=== PATIENT | female | born 1945 | race Caucasian/White ===

== ENCOUNTER 2021-12-27 17:45 | Emergency (ER) | payer OTHER, MEDICAID, SELFPAY ==
[2021-12-27 17:53] VITALS: BP 136/68; PULSE 74; RESP 16; TEMP 36.8; O2SAT 98
--- NOTE | 2021-12-27 18:30 | DI.RAD_ITS ---
Exam(s) XR WRIST LT COMPLETE EXAM: XR WRIST LT COMPLETE CLINICAL HISTORY: fall injury TECHNIQUE: COMPARISON: No exams were available for comparison FINDINGS: Three views were obtained. There are mild degenerative changes of the joints of the carpus consisten t with the patient's age. No evidence of acute fracture or dislocation. IMPRESSION: RADIATION DOSE DELIVERED: Total DLP
--- NOTE | 2021-12-27 19:06 | ED.GENADUL_ITS ---
Discharge Plan Disposition Patient Disposition: HOME Condition: Stable Discharge Details Clinical Impression: Pain, wrist Primary Care Provider: Jb Abel ED Provider: Jb Nathan Home Meds and New Rx's Prescriptions: Continued atorvastatin 80 mg Tablet 80 mg PO DAILY 0RF aspirin 81 mg Tablet 81 mg PO DAILY 0RF metformin 500 mg Tablet 500 mg PO DAILY 0RF atorvastatin 80 mg Tablet 80 mg PO DAILY 0RF metoprolol succinate 50 mg Tablet Extended Release 24 Hr 100 mg PO DAILY 0RF isosorbide mononitrate 60 mg Tablet Extended Release 24 Hr 60 mg PO .QHS 0RF ascorbic acid (vitamin C) [Vitamin C] 500 mg Tablet 500 mg PO DAILY 0RF amlodipine 10 mg Tablet 10 mg PO DAILY 0RF montelukast 10 mg Tablet 10 mg PO DAILY 0RF lisinopril-hydrochlorothiazide 10-12.5 mg Tablet 1 tab PO DAILY 0RF dicyclomine 10 mg Capsule 10 mg PO .BEFORE MEALS AND HS 0RF omeprazole 20 mg Tablet,Delayed Release (Dr/Ec) 20 mg PO DAILY 0RF potassium chloride 20 mEq Tablet Extended Release 20 meq PO DAILY 0RF magnesium oxide 400 mg magnesium Tablet 400 mg PO DAILY 0RF isosorbide mononitrate 120 mg Tablet Extended Release 24 Hr 120 mg PO DAILY 0RF Discharge Instructions Instructions: Wrist Sprain (ED) Additional Instructions: X-ray does not show any obvious fracture. Rest, elevate, cool compresses every 2 hours for 20 minutes. Wear splint as needed, advance activity as tolerated. [id number] Tylenol as directed for discomfort. Please watch for new or worsening symptoms and return to the ER for any concerns. If symptoms persist, please contact your primary care provider on Wednesday to discuss your ER visit and need for outpatient reevaluation. Medical Decision Making 76-year-old female, [id number], not anticoagulated, presents to the ER after sustaining a left wrist injury around 2:00 this afternoon status post mechanical fall. She denies any other injuries or striking her head. She reports the pain is moderate, worse with movement. Denies any numbness, tingling, weakness. Plan is to obtain an x-ray. No obvious deformity or dislocation X-ray read by radiology as no obvious abnormal Discussed x-ray findings with patient. She is relieved. [place] wrist splint applied. We discussed conservative treatment. Standard discharge and return precautions were provided. Patient comfortable with this plan and has no additional questions or concerns This documentation was generated using Blucaratation system, please disregard any oddities of phrase or misspellings. Medical Records Medical records reviewed: Yes I reviewed the patient's medical records. Imaging Data Radiologic Study: Attestation: I personally reviewed and interpreted this imaging study as follows: Imaging: X-Ray Radiologist's impression: PROCEDURE INFORMATION: Exam: XR Left Wrist Exam date and time: 12/27/2021 6:40 PM Age: 76 years old Clinical indication: Pain; Wrist; Left TECHNIQUE: Imaging protocol: XR Left wrist. Views: 3 or more views. COMPARISON: No relevant prior studies available. FINDINGS: Bones/joints: No evidence of fracture. Negative for dislocation. Negative for bony erosion or destructive change. Mild narrowing present at the triscaphe articulation. Soft tissues: Soft tissue swelling is noted around the wrist. Negative for soft tissue air. No foreign bodies observed. IMPRESSION: No acute osseous abnormality. If symptoms persist, follow- up imaging is advised. HPI General Mode of arrival: ambulatory . Date/Time Provider Initiated Documentation: 12/27/21 17:53 . Limitations to Documentation: no limitations . Information obtained by: patient . History of Present Illness 76 year old F presents to the emergency department with the chief complaint of L wrist injury, described as moderate, with intensity rated at 5. Quality is described as aching, and is localized to the left and upper extremity. Patient reports no radiation. Patient started experiencing this hour(s) (5) and it has been constant. improves with Immobilization improves symptom(s), Movement worsens symptoms . Patient notes no other symptoms.. Patient did receive the following treatments prior to arrival, none Related Data Home Medications Medication Instructions Recorded Confirmed amlodipine 10 mg tablet 10 mg PO DAILY 12/27/21 12/27/21 ascorbic acid (vitamin C) 500 mg 500 mg PO DAILY 12/27/21 12/27/21 tablet (Vitamin C) aspirin 81 mg tablet 81 mg PO DAILY 12/27/21 12/27/21 atorvastatin 80 mg tablet 80 mg PO DAILY 12/27/21 12/27/21 atorvastatin 80 mg tablet 80 mg PO DAILY 12/27/21 12/27/21 dicyclomine 10 mg capsule 10 mg PO .BEFORE MEALS AND HS 12/27/21 12/27/21 isosorbide mononitrate 120 mg 120 mg PO DAILY 12/27/21 12/27/21 tablet,extended release 24 hr isosorbide mononitrate 60 mg 60 mg PO .QHS 12/27/21 12/27/21 tablet,extended release 24 hr lisinopril 10 1 tab PO DAILY 12/27/21 12/27/21 mg-hydrochlorothiazide 12.5 mg tablet magnesium oxide 400 mg PO DAILY 12/27/21 12/27/21 metformin 500 mg tablet 500 mg PO DAILY 12/27/21 12/27/21 metoprolol succinate 50 mg 100 mg PO DAILY 12/27/21 12/27/21 tablet,extended release 24 hr montelukast 10 mg tablet 10 mg PO DAILY 12/27/21 12/27/21 omeprazole 20 mg tablet,delayed 20 mg PO DAILY 12/27/21 12/27/21 release potassium chloride 20 mEq 20 meq PO DAILY 12/27/21 12/27/21 tablet,extended release Allergies Allergy/AdvReac Type Severity Reaction Status Date / Time cefadroxil Allergy Unverified 12/27/21 18:00 coconut Allergy Unverified 12/27/21 18:01 seasonal Allergy Uncoded 12/27/21 18:01 cow's mild AdvReac Uncoded 12/27/21 18:03 garlic AdvReac Uncoded 12/27/21 18:03 safflower AdvReac Uncoded 12/27/21 18:03 [place] and cottage cheese AdvReac Uncoded 12/27/21 18:03 yogurt AdvReac Uncoded 12/27/21 18:03 General Stated Complaint: Orthopedic KENDRA: 4 Review of Systems Constitutional Constitutional: Denies headache(s) ENT Ears, Nose, Mouth, and Throat: Denies headache(s) and Denies neck pain Cardiovascular Cardiovascular: Denies chest pain and Denies dyspnea Respiratory Respiratory: Denies dyspnea Musculoskeletal Musculoskeletal: Denies deformity, Reports arthralgias, Denies neck pain, Denies numbness, Reports stiffness and Denies tingling Integumentary/Breasts Skin/Breast: Denies erythema Neurologic Neurologic: Denies headache(s), Denies numbness and Denies tingling PFSH All Active Problems Pain, wrist (Acute) Social History Smoking/Tobacco Use Status: Former Tobacco Use Smoking risk assessment performed?: Yes Substance use type: does not use Exam Const General: cooperative, healthy appearing, comfortable and no acute distress Orientation: alert and awake [facility] Head: normal to inspection, normocephalic and atraumatic Eyes Conjunctivae: conjunctivae normal Neck Neck: normal visual inspection, trachea midline and supple Resp Effort & Inspection: normal respiratory effort and able to speak in complete sentences Cardio Rate: regular rate Rhythm: regular rhythm Skin General skin exam: no rashes or lesions noted Neuro General: patient alert, patient awake, moves all extremities and no focal motor deficits Cognition: normal cognition Speech: speech normal Gait: normal gait Motor: muscle tone normal throughout Sensory Exam: no sensory deficits noted Extrem General: full ROM and capillary refill normal Other: Left wrist with minimal swelling throughout, as well as mild tenderness worse over the distal radial aspect. Skin is intact. There is no bony point tenderness or crepitus. Neuro, vascular, tendon intact. Normal radial pulse and capillary refill. No anatomical snuffbox tenderness Psych Appearance: grossly normal Mental Status: mental status grossly normal Course Vital Signs Vital signs: Vital Signs Temperature 36.8 C 12/27/21 17:53 Pulse 74 12/27/21 17:53 Respiratory Rate 16 12/27/21 17:53 Blood Pressure 136/68 12/27/21 17:53 Pulse Oximetry 98 12/27/21 17:53 Temperature 36.8 C 12/27/21 17:53 Temperature Source Skin 12/27/21 17:53 Pulse 74 12/27/21 17:53 Respiratory Rate 16 12/27/21 17:53 Respiratory Effort 12/27/21 17:53 Blood Pressure 136/68 12/27/21 17:53 Blood Pressure Position Sitting 12/27/21 17:53 Pulse Oximetry 98 12/27/21 17:53 Oxygen Delivery Method Room Air 12/27/21 17:53 Oxygen Flow Rate 0 12/27/21 17:53
--- NOTE | 2021-12-27 20:05 | DI.VRAD_ITS ---
PROCEDURE INFORMATION: Exam: XR Left Wrist Exam date and time: 12/27/2021 6:40 PM Age: 76 years old Clinical indication: Pain; Wrist; Left TECHNIQUE: Imaging protocol: XR Left wrist. Views: 3 or more views. COMPARISON: No relevant prior studies available. FINDINGS: Bones/joints: No evidence of fracture. Negative for dislocation. Negative for bony erosion or destructive change. Mild narrowing present at the triscaphe articulation. Soft tissues: Soft tissue swelling is noted around the wrist. Negative for soft tissue air. No foreign bodies observed. IMPRESSION: No acute osseous abnormality. If symptoms persist, follow-up imaging is advised. Dictated and Authenticated by: Masoud Higginbotham MD. Ordering:MARILEE Muhammad MD
== END 2021-12-27 20:11 | disposition home or self-care (01) ==
PROVIDERS: Emergency Provider Physician Assistant; PCP Nurse Practitioner
DX: S69.82XA Other specified injuries of left wrist, hand and finger(s), initial encounter (principal); W18.39XA Other fall on same level, initial encounter
CPT/HCPCS: 29125; 99283; 73110

== ENCOUNTER → 2023-01-28 10:42 | Outpatient (BNVA) | payer MEDICARE, MEDICAID, SELFPAY | PROVIDERS: PCP Nurse Practitioner; Referring Provider Nurse Practitioner; Visit Provider Nurse Practitioner Gerontology | DX: N39.46 Mixed incontinence (principal) | CPT/HCPCS: 51798; 81003; 99214 ==

== ENCOUNTER 2023-10-24 05:52 | Emergency (ER) | payer MEDICARE, MEDICAID, SELFPAY ==
--- NOTE | 2023-10-24 06:01 | W.ED.GENAD ---
Discharge Plan Disposition Patient Disposition: Home Condition: Good Discharge Details Clinical Impression: Arm pain, left Primary Care Provider: Jb Abel ED Provider: Bala Foreman Home Meds and New Rx's Prescriptions: New lidocaine [Lidoderm] 5 % adhesive patch,medicated 1 patch Topical Q24H Qty: 15 0RF No Action multivitamin Tablet 1 tab PO DAILY albuterol 90 mcg/actuation aerosol inhalation triamcinolone acetonide 0.1 % cream 1 applic topical DAILY nitroglycerin 0.4 mg tablet, sublingual 0.4 mg sublingual Q5M PRN Rx Instructions: do not exceed 3 doses per episode polyethylene glycol 3350 17 gram/dose powder 17 g PO DAILY [employer] Pressair 400 mcg/actuation aerosol powdr breath activated 1 inh inhalation BID acetaminophen 325 mg tablet 650 mg PO Q6H PRN atorvastatin 80 mg Tablet 80 mg PO DAILY aspirin 81 mg Tablet 81 mg PO DAILY metformin 500 mg Tablet 500 mg PO DAILY atorvastatin 80 mg Tablet 80 mg PO DAILY metoprolol succinate 50 mg Tablet Extended Release 24 Hr 100 mg PO DAILY isosorbide mononitrate 60 mg Tablet Extended Release 24 Hr 60 mg PO .QHS ascorbic acid (vitamin C) [Vitamin C] 500 mg Tablet 500 mg PO DAILY amlodipine 10 mg Tablet 10 mg PO DAILY montelukast 10 mg Tablet 10 mg PO DAILY lisinopril-hydrochlorothiazide 10-12.5 mg Tablet 1 tab PO DAILY dicyclomine 10 mg Capsule 10 mg PO .BEFORE MEALS AND HS omeprazole 20 mg Tablet,Delayed Release (Dr/Ec) 20 mg PO DAILY potassium chloride 20 mEq Tablet Extended Release 20 meq PO DAILY magnesium oxide 400 mg magnesium Tablet 400 mg PO DAILY isosorbide mononitrate 120 mg Tablet Extended Release 24 Hr 120 mg PO DAILY Discharge Instructions Instructions: Musculoskeletal Pain (ED) Additional Instructions: At this time I suspect that the pain in your arm is related to irritation of the muscle or adipose tissue in the arm. Currently thankfully there is no evidence of infection, fracture, tumor or other significant abnormality. Please follow-up on Wednesday for your ultrasound. You will be contacted for an appointment time. Please use the Lidoderm patches as prescribed, these have been sent to your pharmacy on file, and apply the Voltaren gel 3-4 times per day to the affected areas. If you notice any worsening of your symptoms, or any new symptoms such as vomiting, diarrhea, fever, chills, shortness of breath, chest pain, numbness, weakness, or fainting , please return immediately to the emergency department for reevaluation. Please follow up with your primary care provider as soon as possible for reassessment and reevaluation. As always, it was a pleasure participating in your medical care today. Referrals: Jb Abel [Primary Care Provider] - Discharge Data Discharge Date/Time-TO BE ENTERED AT DEPARTURE: 10/24/23 07:00 Medical Decision Making This is an 78-year-old female with past medical history of diabetes, high cholesterol, hypertension, kidney stones, asthma/COPD, who presents today for evaluation of left arm pain. Patient states that on 10/12 she got her COVID booster, after which she noticed some achiness in her left arm. It is persistent, it is worse with movement and palpation. There is no associated chest pain or shortness of breath. No radiation to her shoulder. The pain somewhat radiates down the left arm into the forearm when she is using the arm. No pain in the joint itself. She denies fever or chills. No trauma. No other complaints at this time. Although it is worsened with activity, it is not exertional based. Exam demonstrates a notably unremarkable left upper extremity. No redness warmth or fluid collection in the pannus. No edema. No pain at the joints. Pulses intact sensation intact movement intact. Bedside limited ultrasound shows no evidence of venous embolism in the vasculature of the left upper extremity. No signs of an abscess infection or other abnormality otherwise. Uncertain if the patient does have mild myalgias secondary to previous injection, or if there is a component of a muscle strain/pain. Patient focuses the pain in the mid humerus region. Not focally over the bicep or the tricep but more globally in that area. Will get an x-ray to rule out osseous malignancy. Will apply Lidoderm patch and Voltaren gel. Will schedule for nonemergent outpatient ultrasound. 1:24 AM X-ray negative for acute process. No evidence of DVT on bedside ultrasound. Patient otherwise stable for discharge. Will give Voltaren gel, recommend Tylenol, and Lidoderm patch. Discussed red flags for which return. I have extensively reviewed the treatment plan and discharge instructions with the patient. I have addressed all patient concerns at this time. The patient was made aware of what symptoms to monitor for that would warrant a return to the emergency department. Discussed the plan with the patient, they demonstrate verbal understanding and agreement with our assessment and plan at this time. The documentation in this chart was dictated using Impraise dictation software. Please excuse any dictation errors. FINDINGS: BONES: No acute fracture is present. No bony destructive lesion is seen. Visualized portion of elbow and shoulder joints are unremarkable. SOFT TISSUE: Normal. IMPRESSION: Unremarkable radiographs of the left humerus HPI General Date/Time Provider Initiated Documentation: 10/24/23 05:59. HPI Narrative: This is an 78-year-old female with past medical history of diabetes, high cholesterol, hypertension, kidney stones, asthma/COPD, who presents today for evaluation of left arm pain. Patient states that on 10/12 she got her COVID booster, after which she noticed some achiness in her left arm. It is persistent, it is worse with movement and palpation. There is no associated chest pain or shortness of breath. No radiation to her shoulder. The pain somewhat radiates down the left arm into the forearm when she is using the arm. No pain in the joint itself. She denies fever or chills. No trauma. No other complaints at this time. Although it is worsened with activity, it is not exertional based. Related Data Home Medications Medication Instructions Recorded Confirmed amlodipine 10 mg tablet 10 mg PO DAILY 12/27/21 10/24/23 ascorbic acid (vitamin C) 500 mg 500 mg PO DAILY 12/27/21 10/24/23 tablet (Vitamin C) aspirin 81 mg tablet 81 mg PO DAILY 12/27/21 10/24/23 atorvastatin 80 mg tablet 80 mg PO DAILY 12/27/21 10/24/23 atorvastatin 80 mg tablet 80 mg PO DAILY 12/27/21 10/24/23 dicyclomine 10 mg capsule 10 mg PO .BEFORE MEALS AND HS 12/27/21 10/24/23 isosorbide mononitrate 120 mg 120 mg PO DAILY 12/27/21 10/24/23 tablet,extended release 24 hr isosorbide mononitrate 60 mg 60 mg PO .QHS 12/27/21 01/27/23 tablet,extended release 24 hr lisinopril 10 1 tab PO DAILY 12/27/21 10/24/23 mg-hydrochlorothiazide 12.5 mg tablet magnesium oxide 400 mg PO DAILY 12/27/21 10/24/23 metformin 500 mg tablet 500 mg PO DAILY 12/27/21 10/24/23 metoprolol succinate 50 mg 100 mg PO DAILY 12/27/21 10/24/23 tablet,extended release 24 hr montelukast 10 mg tablet 10 mg PO DAILY 12/27/21 10/24/23 omeprazole 20 mg tablet,delayed 20 mg PO DAILY 12/27/21 10/24/23 release potassium chloride 20 mEq 20 meq PO DAILY 12/27/21 10/24/23 tablet,extended release aclidinium bromide 400 1 inh inhalation BID 01/27/23 10/24/23 mcg/actuation breath activated powder inhaler ([employer]) albuterol 90 mcg/actuation aerosol mcg inhalation 01/27/23 01/27/23 inhaler multivitamin 1 tab PO DAILY 01/27/23 10/24/23 nitroglycerin 0.4 mg sublingual 0.4 mg sublingual Q5M PRN 01/27/23 10/24/23 tablet polyethylene glycol 3350 17 17 g PO DAILY 01/27/23 10/24/23 gram/dose oral powder triamcinolone acetonide 0.1 % 1 applic topical DAILY 01/27/23 10/24/23 topical cream acetaminophen 325 mg tablet 650 mg PO Q6H PRN 10/24/23 10/24/23 lidocaine 5 % topical patch 1 patch topical Q24H #15 ea 10/24/23 (Lidoderm) Previous Rx's Medication Instructions Recorded lidocaine 5 % topical patch 1 patch topical Q24H #15 ea 10/24/23 (Lidoderm) Allergies Allergy/AdvReac Type Severity Reaction Status Date / Time cefadroxil Allergy Unverified 10/24/23 06:08 coconut Allergy Unverified 10/24/23 06:08 milk AdvReac Verified 10/24/23 06:08 seasonal Allergy Uncoded 10/24/23 06:08 garlic AdvReac Uncoded 10/24/23 06:08 safflower AdvReac Uncoded 10/24/23 06:08 citizen of [place] and cottage cheese AdvReac Uncoded 10/24/23 06:08 yogurt AdvReac Uncoded 10/24/23 06:08 General KENDRA: 4 Review of Systems All systems reviewed & are unremarkable except as noted in HPI and below PFSH All Active Problems (Updated 10/24/23 @ 06:48 by Bala Foreman DO) Arm pain, left (Acute) Mixed incontinence urge and stress (Acute) Social History Smoking/Tobacco Use Status: Former Tobacco Use Smoking risk assessment performed?: Yes Alcohol Intake: current Alcohol Intake frequency: holidays/special occasions only Alcohol type: wine Substance use type: does not use Housing: house Do you feel safe at home: Yes Do you feel safe in your relationship?: Yes Female Reproductive History Menstrual Age of Menarche: 10 Duration of menses: 3-5 days control method: permanent sterilization (tubal) History History 6 Para Hx # Term Pregnancies 5 Multiple births Hx # Pregnancies Ectopic pregnancies 1 AB induced Hx Number of Living Children AB spontaneous Past Pregnancies Del. Date GA/Weeks # Preg Succ Route Wgt Sex Labor Lgth Anesthesia Location [facility]/19/1961 40 Yes vaginal 2721.554 g Female [facility] 09/03/1966 40 Yes vaginal 3628.739 g Male [facility] 11/28/1969 40 Yes vaginal 3997.283 g Female [facility] 12/10/69 Yes vaginal 2721.554 g [place] [birth year] 40 Yes vaginal 2721.554 g Female [facility] Exam Narrative Exam Narrative: 1.Const: Well-nourished, Well-developed, appearing stated age 2.Eyes: PERRL, no conjunctival injection, and symmetrical lids. 3.ENT: Atraumatic external nose and ears. Moist MM. Neck: Symmetric, trachea midline, No thyromegaly. 4.CVS: +S1/S2, No murmurs or gallops. Peripheral pulses 2+ and equal in all extremities. Brisk capillary refill in all extremities. 5.RESP: Unlabored respiratory effort. Clear to auscultation bilaterally. No wheezes rales or rhonchi 6.GI: Soft, Nontender/Nondistended, No hepatosplenomegaly. No guarding or rebound. 7.MSK: Normocephalic/Atraumatic, Extremities w/o deformity or ttp No cyanosis or clubbing, Normal movement of all extremities. Excellent range of motion of the left upper extremity at the shoulder and the joint. No redness erythema or warmth. No asymmetry or swelling. No edema. Radial pulse +2 bilaterally. Good ux information architect strength. Normal sensation. Limited bed side ultrasound shows good venous compression of her vasculature. No abscess or fluid collection on bedside ultrasound 8.Skin: Warm, Dry. No rashes or lesions. 9.Neuro: feed mixer II-XII grossly intact. Sensation grossly intact, no focal neurologic deficits. 10.Psych: (AAO) x3. Appropriate mood and affect
[2023-10-24 06:12] VITALS: BP 176/85; PULSE 91; RESP 16; TEMP 35.9; O2SAT 97
--- NOTE | 2023-10-24 06:15 | DI.RAD_ITS ---
Exam(s) XR HUMERUS LT EXAM: XR HUMERUS LT CLINICAL HISTORY: pain at mid humerus post covid booster. TECHNIQUE: 2D digital imaging was performed. Two views. COMPARISON: No exams were available for comparison FINDINGS: BONES: No acute fracture is present. No bony destructive lesion is seen. Visualized portion of elbow and shoulder joints are unremarkable. SOFT TISSUE: Normal. IMPRESSION: Unremarkable radiographs of the left humerus. DATA REPOSITORY: RADIATION DOSE DELIVERED:
--- NOTE | 2023-10-24 06:39 | NUR.NOTE ---
Left upper arm ultasound requisition faxed to DI. Patient instructed call DI scheduling 10/26/23 to make appt. Patient to f/u in ED if positive, pcp if negative.Nursing Note:
--- NOTE | 2023-10-24 08:04 | DI.VRAD_ITS ---
PROCEDURE INFORMATION: Exam: XR Left Humerus Exam date and time: 10/24/2023 6:30 AM Age: 78 years old Clinical indication: Upper arm; Left; Patient HX: Covid booster 2 weeks ago - PT is still experiencing pain TECHNIQUE: Imaging protocol: Radiologic exam of the left humerus. Views: 2 or more views. COMPARISON: No relevant prior studies available. FINDINGS: Bones/joints: Osseous demineralization. No bony destruction or acute osseous injury. Mild degenerative changes. Soft tissues: No obvious abnormality. IMPRESSION: No acute findings. Dictated and Authenticated by: Sagar Avery MD. Ordering:TAQUERIA Mckenna MD
== END 2023-10-24 07:00 | disposition home or self-care (01) ==
PROVIDERS: Emergency Provider Student in an Organized Health Care Education/Training Program; PCP Nurse Practitioner
DX: M79.622 Pain in left upper arm (principal); I10 Essential (primary) hypertension; E78.00 Pure hypercholesterolemia, unspecified; E11.9 Type 2 diabetes mellitus without complications; J44.9 Chronic obstructive pulmonary disease, unspecified; Z79.82 Long term (current) use of aspirin; Z79.84 Long term (current) use of oral hypoglycemic drugs; Z87.891 Personal history of nicotine dependence
CPT/HCPCS: 99283; 73060; 99282

== ENCOUNTER → 2023-10-27 02:20 | Outpatient (CLI) | payer MEDICARE, SELFPAY ==
--- NOTE | 2023-10-27 | DI.US_ITS ---
Exam(s) US UPPER EXTREMITY VENOUS LT EXAM: US UPPER EXTREMITY VENOUS LT CLINICAL HISTORY: LT ARM PAIN, SWELLING,? DVT. TECHNIQUE: Ultrasound examination of the left upper extremity venous system(s) is performed using gr ayscale, color-flow, and spectral Doppler analysis. COMPARISON: No exams were available for comparison FINDINGS: The left internal jugular, axillary, subclavian, cephalic, basilic, brachial, radial, and ulnar veins are patent without evidence of thrombosis. IMPRESSION: No DVT. DATA REPOSITORY:
== END ==
PROVIDERS: PCP Nurse Practitioner; Visit Provider Student in an Organized Health Care Education/Training Program
DX: M79.622 Pain in left upper arm (principal)
CPT/HCPCS: 93971

== ENCOUNTER 2024-05-09 15:13 | Outpatient (REF) | payer MEDICARE, SELFPAY ==
[2024-05-09 19:28] LABS: ALT 36 U/L (14-59); AST 28 U/L (15-37); Albumin 3.4 g/dL (3.4-5.0); Alkaline Phosphatase 101 U/L (46-116); Anion Gap 9.9 mmol/L (3-11); BUN 14 mg/dL (7-18); Bilirubin, Total 0.42 mg/dL (0.2-1.0); CO2 26.1 mmol/L (21.0-32.0); Calcium 9.1 mg/dL (8.5-10.1); Chloride 106 mmol/L (98-107); Estimated GFR 56.95 (mL/min/1.73m2); Glucose 200 mg/dL (74-106); Potassium 4.3 mmol/L (3.5-5.1); Sodium 142 mmol/L (136-145); Total Protein 7.4 g/dL (6.4-8.2)
== END 2024-05-09 15:14 | disposition home or self-care (01) ==
LOC: NCHCN 15:13
PROVIDERS: PCP Nurse Practitioner Family; Visit Provider Nurse Practitioner Family
DX: R30.0 Dysuria (principal); I10 Essential (primary) hypertension; B96.20 Unspecified Escherichia coli [E. coli] as the cause of diseases classified elsewhere
CPT/HCPCS: 80053; 87077; 87086; 87186

== ENCOUNTER 2024-07-15 16:44 | Outpatient (REF) | payer MEDICARE, SELFPAY | END 2024-07-15 16:45 | disposition home or self-care (01) | LOC: LBN 16:44 | PROVIDERS: PCP Nurse Practitioner Family; Visit Provider Physician Assistant | DX: N39.0 Urinary tract infection, site not specified (principal) | CPT/HCPCS: 87077; 87086; 87186 ==

== ENCOUNTER 2024-09-28 15:03 | Outpatient (REF) | payer MEDICARE, SELFPAY ==
[2024-09-28 16:06] LABS: Bilirubin Negative (Negative); Blood Negative (Negative); Clarity Clear (Clear); Glucose Negative (Negative); Ketones Negative (Negative); Leukocyte Esterase Trace (Negative); Nitrite Negative (Negative); Specific Gravity 1.025 (1.005-1.025); pH 5.5 (5-8)
[2024-09-28 16:20] LABS: Bacteria Rare HPF (Negative); Crystals Negative HPF (Negative); Epithelial Cells Many HPF (Negative); Mucus Moderate (Negative); RBC 0-2 HPF (0-2)
[2024-09-28 16:21] LABS: C & S Indicated? No/Sq. Contamination
== END 2024-09-28 15:04 | disposition home or self-care (01) ==
LOC: LBN 15:03
PROVIDERS: PCP Nurse Practitioner Family; Visit Provider Nurse Practitioner
DX: R35.0 Frequency of micturition (principal); R39.15 Urgency of urination; R32 Unspecified urinary incontinence
CPT/HCPCS: 81003; 81015

== ENCOUNTER 2025-03-15 10:35 | Outpatient (REF) | payer MEDICARE, SELFPAY | END 2025-03-15 10:36 | disposition home or self-care (01) | LOC: NCHCN 10:35 | PROVIDERS: PCP Nurse Practitioner Family; Visit Provider Nurse Practitioner Family | DX: R30.0 Dysuria (principal); B96.29 Other Escherichia coli [E. coli] as the cause of diseases classified elsewhere | CPT/HCPCS: 87077; 87086; 87186 ==

== ENCOUNTER 2025-04-18 21:34 | Outpatient (REF) | payer MEDICARE, SELFPAY ==
[2025-04-18 23:12] LABS: Bilirubin Negative (Negative); Blood Negative (Negative); Clarity Turbid (Clear); Glucose Negative (Negative); Ketones Negative (Negative); Leukocyte Esterase Small (Negative); Nitrite Negative (Negative); Specific Gravity >= 1.030 (1.005-1.025); pH 5.5 (5-8)
[2025-04-18 23:19] LABS: RBC Negative HPF (0-2)
[2025-04-18 23:20] LABS: Bacteria Negative HPF (Negative); C & S Indicated? No; Crystals Many Amorphous HPF (Negative); Epithelial Cells Many HPF (Negative); Mucus Negative (Negative)
== END 2025-04-18 21:35 | disposition home or self-care (01) ==
LOC: NCHCN 21:34
PROVIDERS: PCP Nurse Practitioner Family; Visit Provider Nurse Practitioner Family
DX: R30.0 Dysuria (principal); B96.29 Other Escherichia coli [E. coli] as the cause of diseases classified elsewhere
CPT/HCPCS: 81003; 81015

== ENCOUNTER 2025-10-07 04:17 | Emergency (ER) | payer MEDICARE, SELFPAY ==
[2025-10-07] VITALS (20 sets, daily range): BP systolic 125–191; BP diastolic 52–110; PULSE 51–96; RESP 13–21; TEMP 36.2; O2SAT 94–98
--- NOTE | 2025-10-07 04:45 | RT.EKG_ITS ---
APPROVED REPORT Exam: Resting ECG Reason for Exam: CHEST PAIN Patient Location: E HR:82 bpm ECG Measurements Heart Rate 82 AXIS W[place] [id number] P [id number] QRSd 99 QRS -16 QT 390 T 7 QTc 456 Conclusion Atrial fibrillation...V-rate 68- 91, irreg A-activity no ST segment or T wave abnormalities to suggest occlusive DC
[2025-10-07] MEDS: MORPHine 10 MG/ML VIAL 2 MG IVP (05:07)
[2025-10-07] MEDS: MYLANTA 30 ML, LIDOCAINE 2% VISCOUS UD 15 ML PO (05:08)
[2025-10-07] MEDS: nitroGLYcerin 0.4 MG TAB SL (05:08)
[2025-10-07] MEDS: Ondansetron 4 MG/2 ML VIAL IVP (05:20)
[2025-10-07 05:27] LABS: Troponin I 6 ng/L (<35)
--- NOTE | 2025-10-07 06:11 | W.ED.GENAD ---
Discharge Plan Disposition Patient Disposition: Home Condition: Good Discharge Details Clinical Impression: Chest pain, Palliative care patient Primary Care Provider: Radha Cheung ED Provider: Yaritza Chu Home Meds and New Rx's Prescriptions: Continued nitroglycerin 0.4 mg tablet, sublingual 0.4 mg sublingual Q5M PRN Rx Instructions: do not exceed 3 doses per episode polyethylene glycol 3350 17 gram/dose powder 17 g PO DAILY isosorbide mononitrate 60 mg tablet extended release 24 hr 60 mg PO BID Rx Instructions: 2 in am, 1 in pm metoprolol succinate 50 mg tablet extended release 24 hr 100 mg PO BID albuterol sulfate 90 mcg/actuation HFA aerosol inhaler 2 puff inhalation Q6H PRN lisinopril-hydrochlorothiazide 10-12.5 mg tablet 1 tab PO DAILY metformin 500 mg tablet extended release 24hr 500 mg PO DAILY haloperidol lactate 2 mg/mL concentrate 2 mg PO Q6H PRN PRN (Reason: agitation) Qty: 15 0RF potassium chloride 20 mEq tablet extended release 20 meq PO DAILY Qty: 30 0RF dicyclomine 20 mg tablet 20 mg PO BID ipratropium-albuterol 0.5 mg-3 mg(2.5 mg base)/3 mL solution for nebulization 3 ml inhalation Q4H PRN acetaminophen 325 mg tablet 650 mg PO Q6H PRN atorvastatin 80 mg Tablet 80 mg PO DAILY aspirin 81 mg Tablet 81 mg PO DAILY montelukast 10 mg Tablet 10 mg PO DAILY Discharge Instructions Additional Instructions: Return to the emergency department for uncontrolled symptoms at home, or if you would like to evaluated for any reason. Stand Alone Forms: Portal Information Discharge Data Discharge Date/Time-TO BE ENTERED AT DEPARTURE: 10/07/25 06:31 HPI General Mode of arrival: ambulatory. Date/Time Provider Initiated Documentation: 10/07/25 04:19. Limitations to Documentation: no limitations. Information obtained by: patient and family. HPI Narrative: 80yo F with hx asthma, COPD, GERD, CAD, HLD, T2DM, presenting for chest pain. Goals of care are directed at comfort and she does not wish for hospitalization or any invasive measures. She reports that about two hours prior to arrival she developed severe substernal chest pressure. Took two nitro at home without much improvement. Pain is dull, severe, non-radiating. No associated shortness of breath and no other associated symptoms. No recent falls or injuries. Otherwise in her usual state of health. Related Data Home Medications ?Medication ?Instructions ?Recorded ?Confirmed aspirin 81 mg tablet 81 mg PO DAILY 12/27/21 10/07/25 atorvastatin 80 mg tablet 80 mg PO DAILY 12/27/21 10/07/25 montelukast 10 mg tablet 10 mg PO DAILY 12/27/21 10/07/25 nitroglycerin 0.4 mg sublingual 0.4 mg sublingual Q5M PRN 01/27/23 10/07/25 tablet polyethylene glycol 3350 17 17 g PO DAILY 01/27/23 10/07/25 gram/dose oral powder acetaminophen 325 mg tablet 650 mg PO Q6H PRN 10/24/23 10/07/25 ipratropium 0.5 mg-albuterol 3 mg 3 ml inhalation Q4H PRN 11/18/23 10/07/25 (2.5 mg base)/3 mL nebulization soln albuterol sulfate 90 mcg/actuation 2 puff inhalation Q6H PRN 12/30/23 10/07/25 aerosol inhaler isosorbide mononitrate 60 mg 60 mg PO BID 12/30/23 10/07/25 tablet,extended release 24 hr lisinopril 10 1 tab PO DAILY 12/30/23 10/07/25 mg-hydrochlorothiazide 12.5 mg tablet metformin 500 mg tablet,extended 500 mg PO DAILY 12/30/23 10/07/25 release 24hr (osmotic) metoprolol succinate 50 mg 100 mg PO BID 12/30/23 10/07/25 tablet,extended release 24 hr haloperidol lactate 2 mg/mL oral 2 mg PO Q6H PRN PRN agitation #15 04/13/24 10/07/25 concentrate mL potassium chloride 20 mEq 20 meq PO DAILY #30 tabs 04/13/24 10/07/25 tablet,extended release dicyclomine 20 mg tablet 20 mg PO BID 07/15/24 10/07/25 Previous Rx's ?Medication ?Instructions ?Recorded haloperidol lactate 2 mg/mL oral 2 mg PO Q6H PRN PRN agitation #15 04/13/24 concentrate mL potassium chloride 20 mEq 20 meq PO DAILY #30 tabs 04/13/24 tablet,extended release Allergies Allergy/AdvReac Type Severity Reaction Status Date / Time cefadroxil Allergy Skin Rash Unverified 06/21/25 12:52 coconut Allergy Diarrhea Unverified 06/21/25 12:52 milk AdvReac Diarrhea Verified 06/21/25 12:52 seasonal Allergy Other (See Uncoded 06/21/25 12:52 Comment) garlic AdvReac Diarrhea Uncoded 06/21/25 12:52 safflower AdvReac Diarrhea Uncoded 06/21/25 12:52 surinamese and cottage cheese AdvReac Diarrhea Uncoded 06/21/25 12:52 yogurt AdvReac Diarrhea Uncoded 06/21/25 12:52 General Stated Complaint: Chest Pain KENDRA: 3 Review of Systems Narrative: see HPI Exam Narrative Exam Narrative: General: Alert, non-toxic, no evident distress. Head: Normocephalic, atraumatic Neck: Trachea midline, ?Neck supple. Cardiac: ?RRR, no murmurs appreciated Resp: No respiratory distress. CTAB. Abd: ?Soft, non-distended, nontender : ?No suprapubic tenderness. No CVA tenderness. Extremities: ?No deformities.? No peripheral edema. Neurologic: GCS 15. ? Moves all extremities freely against gravity Course Vital Signs Vital signs: Vital Signs Temperature 36.2 C L 10/07/25 04:41 Pulse 76 10/07/25 04:41 Respiratory Rate 20 10/07/25 04:41 Blood Pressure 178/108 H 10/07/25 04:41 Pulse Oximetry 98 10/07/25 04:41 Temperature 36.2 C L 10/07/25 04:41 Temperature Source Tympanic 10/07/25 04:41 Pulse 58 L 10/07/25 05:31 Pulse 76 10/07/25 05:31 Respiratory Rate 21 10/07/25 05:31 Blood Pressure 158/85 H 10/07/25 05:31 Blood Pressure Mean 102 10/07/25 05:31 Blood Pressure Position Sitting 10/07/25 04:41 Pulse Oximetry 96 10/07/25 05:31 Oxygen Delivery Method Room Air 10/07/25 04:41 Oxygen Flow Rate 0 10/07/25 04:41 Pain Level 3 10/07/25 04:41 Lab/Test Results Lab/Test Results: Laboratory Tests Range/Units 10/07/25 04:55 Troponin I (<35) ng/L 6 Medical Decision Making 80yo F with hx asthma, COPD, GERD, CAD, HLD, T2DM, presenting for chest pain. Goals of care are directed at comfort and she does not wish for hospitalization or any invasive measures, only wants medications directed at symptom control. She reports that about two hours prior to arrival she developed severe substernal chest pressure. Took two nitro at home without much improvement; presents to the ED hoping for improved pain control. Hypertensive on arrival, vital signs otherwise reassuring. I discussed with Ms. Avalos her goals of care and she affirms that she wants minimal interventions. We agreed to an EKG, CXR, and troponin to attempt to identify the source of her symptoms to potentially allow for better treatment. She affirms that she would not want life-prolonging medical treatment (medications, cardiac cath, surgery) regardless of the results. In the meantime will treat symptoms with additional nitro, IV morphine, GI cocktail. EKG shows afib, no ST segment or T wave abnormalities to suggest occlusive [place]; troponin normal. No prior EKGs available for comparison. Discussed with patient and reviewed that this increases her risk for stroke and that we often start blood thinners to help prevent this which do increase risk for bleeding. She does not want to start any new medications including any blood thinners. On reassessments reports that morphine seemed to help with pain; nitro and GI cocktail did not. She is feeling better and would like to go home. Granddaughter now at bedside and feels comfortable taking patient home. CXR has not yet performed and patient does not want to wait for this; order canceled. Offered short course of oxycodone for pain at home; pt declined. Discharged home; discharge instructions and return precuations were reviewed with patient who verbalized understanding. All questions were answered and she is in full agreement with the plan. Lab Data Lab results reviewed: Yes I reviewed the patient's lab results. Labs: Laboratory Tests Range/Units 10/07/25 04:55 Troponin I (<35) ng/L 6 PFSH All Active Problems (Updated 10/07/25 @ 06:13 by Yaritza Chu MD) Palliative care patient (Acute) Chest pain (Acute) Palliative care encounter (Acute) Community acquired pneumonia (Acute) Urinary incontinence (Acute) Urinary urgency (Acute) Increased urinary frequency (Acute) Mixed incontinence urge and stress (Acute) Medical History ASHD (arteriosclerotic heart disease) Asthma COPD (chronic obstructive pulmonary disease) Decreased appetite Depressed Edema Emphysema, unspecified Environmental allergies Essential hypertension GERD without esophagitis History of esophageal dilatation Hypertrophic soft palate Hypokalemia Memory deficit Mixed hyperlipidemia Mixed irritable bowel syndrome Onychodystrophy Other amnesia Psoriasis Sialoadenitis Sleep difficulties Snoring Superficial varicosities 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 Weight loss Surgical History History of ankle surgery History of bladder suspension procedure History of [place] fundoplication Hx of foot surgery hammer toe repair Hx of tubal ligation Family History Father Diabetes Heart disease COPD (chronic obstructive pulmonary disease) Mother Diabetes Hypertension COPD (chronic obstructive pulmonary disease) Asthma Arthritis Brother Heart disease Sister Diabetes Social History Smoking/Tobacco Use Status: Former Tobacco Use Smoking risk assessment performed?: Yes Alcohol Intake: current Alcohol Intake frequency: holidays/special occasions only Alcohol type: wine Substance use type: does not use Housing: house current occupation: retired Do you feel safe at home: Yes Do you feel safe in your relationship?: Yes Female Reproductive History Menstrual Age of Menarche: 10 Duration of menses: 3-5 days control method: permanent sterilization History History 6 Para Hx # Term Pregnancies 5 Multiple births Hx # Pregnancies Ectopic pregnancies 1 AB induced Hx Number of Living Children AB spontaneous Past Pregnancies Del. Date GA/Weeks # Preg Succ Route Wgt Sex Labor Lgth Anesthesia Location Prov [facility] 11/19/1961 40 Yes vaginal 2721.554 g Female [facility] 09/03/1966 40 Yes vaginal 3628.739 g Male [facility] 11/28/1967 40 Yes vaginal 3997.283 g Female [facility] 12/10/69 Yes vaginal 2721.554 g Female [place] 06/03/73 40 Yes vaginal 2721.554 g Female [place]
--- NOTE | 2025-10-13 07:47 | NUR.NOTE ---
Access chart to reconcile EKG orders with EKG's in [facility]. Duplicate order cancelled. Nursing Note:
== END 2025-10-07 06:31 | disposition home or self-care (01) ==
PROVIDERS: Emergency Provider Student in an Organized Health Care Education/Training Program; PCP Nurse Practitioner Family
DX: I48.91 Unspecified atrial fibrillation (principal); R07.9 Chest pain, unspecified
CPT/HCPCS: 99284 ×2; 36415; 96374; 96375; 93005; 84484; 93010; J2270; J2405